=== PATIENT | male | born 1990 | race Caucasian/White ===

== ENCOUNTER 2017-10-25 07:07 | Emergency (ER) | payer OTHER, MEDICAID ==
[2017-10-25 07:20] VITALS: BP 161/111; PULSE 121; RESP 16; TEMP 97.9; O2SAT 97
--- NOTE | 2017-10-25 07:25 | EDPHY ---
H & P Time Seen by Provider: 10/25/17 07:24 HPI/ROS: Chief complaint. Recent drug injection left arm HPI. 19-year-old male with methamphetamine injection in the left elbow area at 3:00 a.m.. It feels slightly tender but not swollen or red. He has some upper respiratory symptoms of runny nose and congestion and is concerned about allergic reaction. History of IVDA. No shortness of breath chest discomfort. No difficulty swallowing or speaking. No similar symptoms with previous injections. ROS Constitutional. no fever/chills, no weakness Eyes. no problems with vision ENT. Congestion Cardiovascular. no chest pain Respiratory. no shortness of breath, no cough Abdominal. no abdominal pain, no nausea/vomiting, no diarrhea . no problems urinating MS. no calf pain/swelling, no neck/back pain, no joint pain Skin. Mild tenderness left antecubital fossa Lymph. no swollen glands Neuro. no headache, no dizziness, no difficulty walking or with speech Past Medical/Surgical History: IVDA Social History: Single, daily smoker, no alcohol Smoking Status: Current some day smoker Physical Exam: General Appearance: Alert well-developed male mild distress vital signs show heart rate 121 and blood pressure 161/111 Eyes: Pupils equal and round no pallor or injection. ENT, Mouth: Mucous membranes are moist. Tympanic membranes are normal. Pharynx without injection Respiratory: There are no retractions, lungs are clear to auscultation. Cardiovascular: Regular rate and rhythm. Gastrointestinal: Abdomen is soft and nontender, no masses, bowel sounds normal. Neurological: Awake and alert, sensory and motor exams grossly normal. Skin: Recent injection site is at the left antecubital fossa. No significant swelling. No erythema. Good range of motion Musculoskeletal: Neck is supple nontender. Extremities symmetrical, full range of motion. Radial pulses are symmetrical. Distal motor vascular sensitivity appears intact Psychiatric: Patient is oriented X 3, there is no agitation. Constitutional: Initial Vital Signs Temperature (C) 36.6 C 10/25/17 07:13 Heart Rate 121 H 10/25/17 07:13 Respiratory Rate 16 10/25/17 07:13 Blood Pressure 161/111 H 10/25/17 07:13 O2 Sat (%) 97 10/25/17 07:13 O2 Delivery Mode Room Air Allergies/Adverse Reactions: No Known Allergies Allergy (Unverified 10/25/17 07:20) Home Medications: Medication Instructions Recorded Cephalexin [Keflex (*)] 500 mg PO TID #21 cap 10/25/17 Medical Decision Making Procedures: Benadryl by mouth ED Course/Re-evaluation: Patient remained stable. He and I discussed treatment plan including criteria for return importance of follow-up and further evaluation. He expresses understanding. We discussed that even despite antibiotics this could turn into cellulitis and abscess which needs to be incised and drained. Patient has normal healthcare is at the [facility]. He is encouraged to follow up with them for continuing symptoms Differential Diagnosis: I considered arterial injection but there is no evidence for arterial compromise. No evidence for ischemia of the limb. Currently no evidence of cellulitis or abscess. The upper respiratory symptoms may be from secondary to the meth or contaminant to the meth. He may also be developing an upper respiratory infection that would be viral. Departure - Departure Disposition: Home, Routine, Self-Care Clinical Impression: IVDA URI (upper respiratory infection) Qualifiers: URI type: unspecified URI Qualified Code(s): J06.9 - Acute upper respiratory infection, unspecified Condition: Good Instructions: Cellulitis (ED) Additional Instructions: Benadryl every 6-8 hours for congestion. Cephalexin as antibiotic to prevent her treat infection in the skin of your left elbow area. Return for worsening symptoms. Recheck in 2 days for continuing symptoms Referrals: NONE *PRIMARY CARE P,. [Primary Care Provider] - As per Instructions Prescriptions: Cephalexin [Keflex (*)] 500 mg PO TID #21 cap
[2017-10-25] MEDS ORDERED: diphenhydrAMINE 25 MG CAP PO ONE (07:38)
== END 2017-10-25 07:59 | disposition home or self-care (01) ==
LOC: CED 07:07
DX: J06.9 Acute upper respiratory infection, unspecified (principal); F19.10 Other psychoactive substance abuse, uncomplicated; F17.200 Nicotine dependence, unspecified, uncomplicated

== ENCOUNTER 2018-01-03 03:38 | Emergency (ER) | payer MEDICAID, OTHER ==
[2018-01-03] MEDS ORDERED: AZITHROMYCIN 250 MG TAB PO ONE (05:43)
--- NOTE | 2018-01-03 05:46 | EDPHY ---
H & P Stated Complaint: Testicular pain, "torsion" post enhancement pill Time Seen by Provider: 01/03/18 04:23 HPI/ROS: HPI The patient presents with right-sided testicular pain. This is been present for the last several hours after taking a male enhancement pill he bought at [employer]. He had pain shortly thereafter. He feels that his right testicle is swollen. It is tender to the touch. He is concerned he has testicular torsion. He has no prior history of similar. REVIEW OF SYSTEMS Constitutional: No fever, no chills. Eyes: No discharge. ENT: No sore throat. Cardiovascular: No chest pain, no palpitations. Respiratory: No cough, no shortness of breath. Gastrointestinal: No abdominal pain, no vomiting. Genitourinary: No hematuria. Musculoskeletal: No back pain. Skin: No rashes. Neurological: No headache. PMHx: Healthy Soc Hx: Sexually active, does not always use protection PHYSICAL General Appearance: Alert, no distress Eyes: Pupils equal and round no pallor or injection ENT, Mouth: Mucous membranes moist Respiratory: There are no retractions, lungs are clear to auscultation Cardiovascular: Regular rate and rhythm Gastrointestinal: Abdomen is soft and non-tender, no masses, bowel sounds normal : There is tenderness of the right testicle diffusely, there is no overlying skin change, there is a normal cremasteric reflex, there is normal lie Neurological: A&O, moves all extremities Skin: Warm and dry, no rashes Musculoskeletal: Neck is supple non tender Extremities: symmetrical, full range of motion Psychiatric: Patient is oriented X 3, there is no agitation Source: Patient Exam Limitations: No limitations - Personal History Current Tetanus Diphtheria and Acellular Pertussis (TDAP): Yes - Medical/Surgical History Hx Asthma: No Hx Chronic Respiratory Disease: No Hx Diabetes: No Hx Cardiac Disease: No Hx Cirrhosis: No Hx Alcoholism: Yes Hx HIV/AIDS: No Other PMH: polysubstance abuse /. PTSD - Social History Smoking Status: Current some day smoker Constitutional: Initial Vital Signs Temperature (C) 36.9 C 01/03/18 03:39 Heart Rate 120 H 01/03/18 03:39 Respiratory Rate 20 01/03/18 03:39 Blood Pressure 145/105 H 01/03/18 03:39 O2 Sat (%) 97 01/03/18 03:39 O2 Delivery Mode Room Air Allergies/Adverse Reactions: No Known Allergies Allergy (Verified 01/03/18 03:39) Home Medications: Medication Instructions Recorded Cephalexin [Keflex (*)] 500 mg PO TID #21 cap 10/25/17 Medical Decision Making - Diagnostics Imaging Results: Ultrasound testicular demonstrates possible right-sided orchitis, discussed with Dr. Green of Radiology. Differential Diagnosis: This is a 27-year-old healthy sexually active male who presents with right- sided testicular pain for the last several hours. On exam he is tender. Differential diagnosis includes testicular torsion, epididymitis, orchitis. In the emergency department, patient had ultrasound performed which demonstrated orchitis. UA was unremarkable. Given his history of unprotected sex I will treat him with ceftriaxone and azithromycin. He is in agreement with this plan. I will refer him to Urology as well. - Data Points Laboratory Results: 01/03/18 05:20 Urine Color YELLOW Urine Appearance CLEAR Urine pH 5.0 (5.0-7.5) Ur Specific [place] 1.024 (1.002-1.030) Urine Protein NEGATIVE (NEGATIVE) Urine Ketones NEGATIVE (NEGATIVE) Urine Blood NEGATIVE (NEGATIVE) Urine Nitrate NEGATIVE (NEGATIVE) Urine Bilirubin NEGATIVE (NEGATIVE) Urine Urobilinogen NEGATIVE EU EU (0.2-1.0) Ur Leukocyte Esterase NEGATIVE (NEGATIVE) Urine Glucose NEGATIVE (NEGATIVE) Medications Given: Discontinued Medications Azithromycin (Zithromax) 1,000 mg PO EDNOW ONE PRN Reason: Protocol Stop: 01/03/18 05:44 Last Admin: 01/03/18 06:08 Dose: 1,000 mg Ceftriaxone Sodium (Rocephin Im Syringe) 250 mg IM EDNOW ONE PRN Reason: Protocol Stop: 01/03/18 05:44 Last Admin: 01/03/18 06:08 Dose: 250 mg Departure - Departure Disposition: Home, Routine, Self-Care Clinical Impression: Orchitis Condition: Good Instructions: Orchitis (ED) Additional Instructions: Please follow-up with the urologist in a few days if your symptoms continue. You should return to the emergency department if your worse in any way. Referrals: Taurus Adams MD [Medical Doctor] - As per Instructions
[2018-01-03 06:09] VITALS: PULSE 105; RESP 18; O2SAT 96
[2018-01-03 06:13] VITALS: BP 144/78; TEMP 98.1
== END 2018-01-03 06:12 | disposition home or self-care (01) ==
DX: N45.2 Orchitis (principal); F17.200 Nicotine dependence, unspecified, uncomplicated
CPT/HCPCS: J0696

== ENCOUNTER 2018-08-26 08:25 | Emergency (ER) | payer OTHER ==
[2018-08-26] MEDS ORDERED: SULFAMETHOX/TMP 800/160 MG 1 TAB PO ONE (09:01)
[2018-08-26] MEDS ORDERED: CEPHALEXIN 500 MG CAP PO ONE (09:01)
--- NOTE | 2018-08-26 09:04 | EDPHY ---
H & P Time Seen by Provider: 08/26/18 08:30 HPI/ROS: CHIEF COMPLAINT: Facial rash HISTORY OF PRESENT ILLNESS: Patient states he woke up morning and noticed some crusting and drainage around his left nare. It was painful as well. Also has some lesser lesions to the right jaw line. He states the day before he felt "sick", like he was getting a cold but has otherwise not had any recent illnesses. Also c/o congestion, swollen glands. Denies fever, sore throat. No lesions elsewhere. No shortness of breath or cough. Does have headache but states he has headaches all the time as has had traumatic brain injury. REVIEW OF SYSTEMS: Constitutional: No fever, no chills. Eyes: No discharge. ENT: No sore throat. Some congestion. Cardiovascular: No chest pain, no palpitations. Respiratory: No cough, no shortness of breath. Gastrointestinal: No abdominal pain, no vomiting. Genitourinary: No dysuria. Musculoskeletal: No back pain. Skin: No rashes. Neurological: No headache. General Appearance: Alert, no distress. Eyes: Pupils equal and round no pallor or injection. ENT, Mouth: Mucous membranes moist. Left knee air with erythema, swelling, crusty surface. No drainage noted. Right-sided cheek and jaw line with several small areas of erythematous changes without edema, fluctuance, drainage. No cervical lymphadenopathy. Oropharynx clear. Respiratory: There are no retractions, lungs are clear to auscultation. Cardiovascular: Regular rate and rhythm. Gastrointestinal: Abdomen is soft and nontender, no masses, bowel sounds normal. Neurological: Awake and alert, no focal neurologic deficits. Cranial nerves intact. Skin: Warm and dry, no rashes. Musculoskeletal: Neck is supple nontender. Extremities are symmetrical, full range of motion, no edema. Psychiatric: Patient is oriented X 3, there is no agitation. Medical/surgical history: TBI, [facility], PTSD, history of polysubstance abuse. Social history: Denies tobacco, EtOH, drugs. Smoking Status: Former smoker Constitutional: Initial Vital Signs Temperature (C) 36.9 C 08/26/18 08:35 Heart Rate 104 H 08/26/18 08:35 Respiratory Rate 16 08/26/18 08:35 Blood Pressure 165/106 H 08/26/18 08:35 O2 Sat (%) 94 08/26/18 08:35 O2 Delivery Mode Room Air Allergies/Adverse Reactions: No Known Allergies Allergy (Verified 08/26/18 08:34) Home Medications: Medication Instructions Recorded B-12 08/26/18 Cephalexin [Keflex (*)] 500 mg PO Q6H #28 cap 08/26/18 Sulfamethox/Tmp 800/160 mg 1 tab PO BID #14 tab 08/26/18 [Bactrim Ds] Medical Decision Making Differential Diagnosis: Differential diagnosis includes but is not limited to impetigo, erysipelas, abscess, other facial cellulitis, acne. After evaluation likely impetigo although lesions on right jaw line atypical. Will cover both staph and strep including MRSA. No signs of systemic illness although patient noted to have elevated blood pressure. He gets his care at the [place] and I strongly recommended he get follow-up to have his blood pressure recheck. Reviewed return precautions in detail. Stable for discharge. First dose antibiotics given in the emergency department. - Data Points Medications Given: Discontinued Medications Cephalexin HCl (Keflex) 500 mg PO EDNOW ONE PRN Reason: Protocol Stop: 08/26/18 09:02 Last Admin: 08/26/18 09:03 Dose: 500 mg Trimethoprim/Sulfamethoxazole (Bactrim Ds) 1 ea PO EDNOW ONE PRN Reason: Protocol Stop: 08/26/18 09:02 Last Admin: 08/26/18 09:03 Dose: 1 ea Departure - Departure Clinical Impression: Impetigo Cellulitis Qualifiers: Site of cellulitis: face Qualified Code(s): L03.211 - Cellulitis of face Condition: Good Instructions: Impetigo (ED), Cellulitis (ED) Additional Instructions: Keep area clean, you can use warm packs as discussed. [facility] or [facility] if you get worse in any way. This includes worsening redness, pus, pain or fever. Prescriptions: Cephalexin [Keflex (*)] 500 mg PO Q6H #28 cap Sulfamethox/Tmp 800/160 mg [Bactrim Ds] 1 tab PO BID #14 tab
[2018-08-26 09:15] VITALS: BP 148/98
== END 2018-08-26 09:14 | disposition home or self-care (01) ==
LOC: CED 08:25
DX: L01.00 Impetigo, unspecified (principal); L03.211 Cellulitis of face; Z87.891 Personal history of nicotine dependence